=== PATIENT | female | born 1980 | race Caucasian/White ===

== ENCOUNTER 2018-04-20 08:10 | Emergency (ER) | payer BC ==
[2018-04-20] MEDS ORDERED: IV NORMAL SALINE 1,000ML 1,000 ML IV SCH (08:31)
--- NOTE | 2018-04-20 08:37 | PHYS DOC ---
Past History Past Medical History: Asthma, Hypertension Past Surgical History: No Surgical History Alcohol Use: Occasionally Drug Use: None Adult General Chief Complaint Chief Complaint: abdominal and back pain [facility] HPI 37-year-old female patient complaining of sudden onset of right lower quadrant pain with radiation to her back that woke her up at 2 AM as a constant pain with episodes of sharp pain. Patient complaining of 6 episodes of vomiting. Patient rated the pain as high as 10/10. Patient denies history of the same pain , injury, and constipation, urinary symptoms, vaginal bleeding, . Review of Systems Review of Systems Constitutional: Denies fever or chills [] Eyes: Denies change in visual acuity, redness, or eye pain [] HENT: Denies nasal congestion or sore throat [] Respiratory: Denies cough or shortness of breath [] Cardiovascular: No additional information not addressed in HPI [] GI: Reports abdominal pain, nausea, vomiting, denies bloody stools or diarrhea [ ] : Denies dysuria or hematuria [] Musculoskeletal: Reports back pain , denies joint pain [] Integument: Denies rash or skin lesions [] Neurologic: Denies headache, focal weakness or sensory changes [] Endocrine: Denies polyuria or polydipsia [] All other systems were reviewed and found to be within normal limits, except as documented in this note. Allergies Allergies Allergies Coded Allergies Type Severity Reaction Last Updated Verified Penicillins Allergy Unknown Rash 04/20/18 Yes Physical Exam Physical Exam Constitutional: Well developed, well nourished, moderate distress, non-toxic appearance. [] HENT: Normocephalic, atraumatic, oropharynx moist, no oral exudates, nose normal. [] Eyes: PERRLA, EOMI, conjunctiva normal, no discharge. [] Neck: Normal range of motion, no tenderness, supple, no stridor. [] Cardiovascular:Heart rate regular rhythm, no murmur [] Lungs & Thorax: Bilateral breath sounds clear to auscultation [] Abdomen: Bowel sounds normal, soft, right lower quadrant guarding, no tenderness , no masses, no pulsatile masses. [] Skin: Warm, dry, no erythema, no rash. [] Back: No tenderness, no CVA tenderness. [] Extremities: No tenderness, no cyanosis, no clubbing, ROM intact, no edema. [] Neurologic: Alert and oriented X 3, normal motor function, normal sensory function, no focal deficits noted. [] Psychologic: Affect normal, judgement normal, mood normal. [] Current Patient Data Vital Signs Vital Signs Date Time Temp Pulse Resp B/P (MAP) Pulse Ox O2 Delivery O2 Flow Rate FiO2 04/20/18 08:21 98.2 98 18 98 Room Air Lab Results Laboratory Tests Test 04/20/18 07:41 POC Urine HCG, Qualitative hcg negative (Negative) EKG EKG [] Radiology/Procedures Radiology/Procedures [][address] [address] IMAGING REPORT Signed PATIENT: TONIA HUDDLESTON ACCOUNT: [id number] : 1980 LOCATION: ER AGE: 37 SEX: F EXAM STATUS: PRE ER ORD. PHYSICIAN: MARCY LEON MD REASON: RLQ and right flank pain PROCEDURE: CT ABDOMEN PELVIS WO CONTRAST Examination: CT of the abdomen pelvis without contrast HISTORY: History of right lower quadrant abdominal pain, right flank pain COMPARISON: None available Exposure: One or more of the following individualized dose reduction techniques were utilized for this examination: 1. Automated exposure control 2. Adjustment of the mA and/or kV according to patient size 3. Use of iterative reconstruction technique FINDINGS: The bibasilar lungs are clear. No evidence of free air identified in the abdomen. The evaluation of the solid organs is limited due to lack of IV contrast. The evaluation of bowel is limited due to lack of oral contrast. Mild decreased attenuation noted throughout the liver likely hepatic steatosis. The visualized noncontrasted spleen, adrenals grossly appears unremarkable. The gallbladder is mildly distended. The visualized pancreas grossly appears unremarkable. The small bowel is nondilated. The visualized appendix grossly appears unremarkable. Feces and gas noted in the colon. Urinary bladder is mildly distended. Punctate intrarenal collecting system calculi identified in the bilateral kidneys with the largest measuring 3 mm. Mild right-sided hydronephrosis and hydroureter identified. There is a 4.5 mm calculus identified in the right ureterovesical junction. Mild fat stranding identified about the right kidney and right ureter. No evidence of lytic bony destructive lesion. IMPRESSION: 1. 4.5 mm calculus identified at the right ureterovesical junction causing mild right-sided hydronephrosis and hydroureter. There is mild fat stranding identified about the right kidney in the right ureter. 2. Bilateral nephrolithiasis. 3. Mild hepatic steatosis. Electronically signed by: Walter Mendosa MD (04/20/2018 9:09 AM) [facility] DICTATED AND SIGNED BY: WALTER MENDOSA MD DATE: 04/20/18903 CC: MARCY LEON MD; NON,STAFF ~ Course & Med Decision Making Course & Med Decision Making Pertinent Labs and Imaging studies reviewed. (See chart for details) Evaluation of patient in ER showed 37-year-old female patient with complaining of sudden onset of right lower quadrant pain with radiation to right flank for about 6 hours prior to arrival to ER. Patient had 4.5 mm UP junction stone with mild hydronephrosis. Patient treated with IV fluid, Zofran, Toradol, Flomax and fentanyl and felt better. Patient instructed to increase fluid intake and strain all of her urine and follow-up with on-call urology. Dragon Disclaimer Dragon Disclaimer This electronic medical record was generated, in whole or in part, using a voice recognition dictation system. Departure Departure: Impression: Primary Impression: Renal colic on right side Additional Impressions: Ureterolithiasis Hypertensive urgency Dehydration Disposition: 01 HOME, SELF-CARE (At 1100) Condition: IMPROVED Referrals: NON,STAFF (PCP) EMMANUEL BERTRAND MD Patient Instructions: Diet for Kidney Stones, Hypertension, Kidney Stones Additional Instructions: Drink plenty of liquids Follow-up with automation qa analyst urology physician in 2-3 days Return to ER if not getting better Strain all of your urine Take your blood pressure medication Scripts Ondansetron (ZOFRAN ODT) 4 Mg Tab.rapdis 1 TAB SL Q8HRS, #15 TAB Prov: MARCY LEON MD 04/20/18 Ibuprofen (IBUPROFEN) 800 Mg Tablet 1 TAB PO TID, #30 TAB Prov: MARCY LEON MD 04/20/18 Hydrocodone Bit/Acetaminophen (NORCO 5-325 TABLET) 1 Each Tablet 1 TAB PO PRN Q6HRS PRN for PAIN, #14 TAB 0 Refills Prov: MARCY LEON MD 04/20/18 Tamsulosin Hcl (FLOMAX) 0.4 Mg Cap.er.24h 1 CAP PO DAILY, #14 CAP 0 Refills Prov: MARCY LEON MD 04/20/18 Problem Qualifiers MARCY LEON MD Apr 20, 2018 08:37
[2018-04-20] MEDS ORDERED: ONDANSETRON PF 4 MG/2 ML VIAL. IV ONE (08:45)
[2018-04-20] MEDS ORDERED: KETOROLAC 30 MG/ML VIAL. IV ONE (08:45)
[2018-04-20 08:58] LABS: BASO # 0.1 x10^3/uL (0.0-0.2); BASO % 1 % (0-3); EOS % 0 % (0-3); HEMATOCRIT 42.2 % (36.0-47.0); HEMOGLOBIN 14.4 g/dL (12.0-15.5); LYMPH # 0.8 x10^3/uL (1.0-4.8); LYMPH % 6 % (24-48); MEAN CORPUSCULAR HEMOGLOBIN 30 pg (25-35); MEAN CORPUSCULAR HGB CONC 34 g/dL (31-37); MEAN CORPUSCULAR VOLUME 88 fL (79-100); MONO # 0.3 x10^3/uL (0.0-1.1); MONO % 2 % (0-9); NEUT # 13.4 x10^3uL (1.8-7.7); NEUT % 92 % (31-73); PLATELET COUNT 358 x10^3/uL (140-400); RED BLOOD COUNT 4.78 x10^6/uL (3.50-5.40); RED CELL DISTRIBUTION WIDTH 13.5 % (11.5-14.5); WHITE BLOOD COUNT 14.6 x10^3/uL (4.0-11.0)
[2018-04-20 09:00] LABS: BILIRUBIN,URINE NEG (NEG); CLARITY,URINE CLEAR; COLOR,URINE YELLOW
[2018-04-20 09:01] LABS: GLUCOSE,URINE NEG (NEG); NITRITE,URINE NEG (NEG); UROBILINOGEN,URINE 0.2 mg/dL (0.2 mg/dL)
[2018-04-20 09:09] LABS: ALBUMIN 3.7 g/dL (3.4-5.0); ALBUMIN/GLOBULIN RATIO 0.8 (1.0-1.7); CALCIUM 8.7 mg/dL (8.5-10.1); CREATININE 1.3 mg/dL (0.6-1.0); GFR 46.6; POTASSIUM 3.9 mmol/L (3.5-5.1); TOTAL BILIRUBIN 0.3 mg/dL (0.2-1.0); TOTAL PROTEIN 8.1 g/dL (6.4-8.2)
--- NOTE | 2018-04-20 09:12 | RAD ---
Examination: CT of the abdomen pelvis without contrast HISTORY: History of right lower quadrant abdominal pain, right flank pain COMPARISON: None available Exposure: One or more of the following individualized dose reduction techniques were utilized for this examination: 1. Automated exposure control 2. Adjustment of the mA and/or kV according to patient size 3. Use of iterative reconstruction technique FINDINGS: The bibasilar lungs are clear. No evidence of free air identified in the abdomen. The evaluation of the solid organs is limited due to lack of IV contrast. The evaluation of bowel is limited due to lack of oral contrast. Mild decreased attenuation noted throughout the liver likely hepatic steatosis. The visualized noncontrasted spleen, adrenals grossly appears unremarkable. The gallbladder is mildly distended. The visualized pancreas grossly appears unremarkable. The small bowel is nondilated. The visualized appendix grossly appears unremarkable. Feces and gas noted in the colon. Urinary bladder is mildly distended. Punctate intrarenal collecting system calculi identified in the bilateral kidneys with the largest measuring 3 mm. Mild right-sided hydronephrosis and hydroureter identified. There is a 4.5 mm calculus identified in the right ureterovesical junction. Mild fat stranding identified about the right kidney and right ureter. No evidence of lytic bony destructive lesion. IMPRESSION: 1. 4.5 mm calculus identified at the right ureterovesical junction causing mild right-sided hydronephrosis and hydroureter. There is mild fat stranding identified about the right kidney in the right ureter. 2. Bilateral nephrolithiasis. 3. Mild hepatic steatosis. Electronically signed by: Walter Mendosa MD (04/20/2018 9:09 AM) [facility]
[2018-04-20] MEDS ORDERED: IV NORMAL SALINE 1,000ML 1,000 ML IV ONE (09:45)
[2018-04-20] MEDS ORDERED: TAMSULOSIN 0.4 MG CAP.ER.24H. PO ONE (09:45)
[2018-04-20] MEDS ORDERED: TAMS0.4C97 PO (10:24)
[2018-04-20] MEDS ORDERED: IBUP800T19 PO (10:24)
[2018-04-20] MEDS ORDERED: ONDA4TAB10 SL (10:24)
[2018-04-20] MEDS ORDERED: HYDR-971 PO (10:24)
[2018-04-20] MEDS ORDERED: cloNIDine HCL 0.1 MG TABLET PO ONE (10:30)
[2018-04-20 11:02] VITALS: BP 181/97
== END 2018-04-20 11:16 | disposition home or self-care (01) ==
LOC: ER 08:10
DX: N13.2 Hydronephrosis with renal and ureteral calculous obstruction (principal); I16.0 Hypertensive urgency; E86.0 Dehydration; K76.0 Fatty (change of) liver, not elsewhere classified; J45.909 Unspecified asthma, uncomplicated; I10 Essential (primary) hypertension; Z88.0 Allergy status to penicillin
CPT/HCPCS: 36415; 74176; 80053; 81003; 81025; 83690; 85025; 96361; 96374; 96375; 99285; J1885; J2405; J3010; J7030